=== PATIENT | male | born 1995 | race Hispanic/Latino ===

== ENCOUNTER 2024-03-26 18:43 | Emergency (ER) | payer SELFPAY ==
[~2024-03-26] VITALS: Ht 185.4 cm; Wt 113.4 kg
[2024-03-26 19:11] VITALS: PULSE 72; RESP 18; TEMP 98.1
[2024-03-26 21:58] VITALS: BP 149/73; PULSE 84; RESP 18; TEMP 98.3; O2SAT 98
== END 2024-03-26 21:42 | disposition home or self-care (01) ==
LOC: FSED 19:00
DX: S93.492A Sprain of other ligament of left ankle, initial encounter (principal); S80.12XA Contusion of left lower leg, initial encounter; W20.8XXA Other cause of strike by thrown, projected or falling object, initial encounter; Y99.0 Civilian activity done for income or pay
CPT/HCPCS: 99284